=== PATIENT | female | born 1995 | race Caucasian/White ===

== ENCOUNTER 2018-03-10 16:28 | Emergency (ER) | payer OTHER ==
[~2018-03-10] VITALS: Ht 167.6 cm; Wt 67.1 kg
[2018-03-10 16:33] VITALS: BP 123/78
--- NOTE | 2018-03-10 16:40 | NUR ---
medicated per protocol with tylenol.
[2018-03-10] MEDS ORDERED: ACETAMINOPHEN 325 MG TAB ONE (16:43)
--- NOTE | 2018-03-10 16:59 | NUR ---
Patient ambulated to bed 3. RN evaluating patient at bedside.
--- NOTE | 2018-03-10 19:22 | NUR ---
DR. COTTO AT THE BEDSIDE EVALUATING PT
[2018-03-10 19:49] VITALS: BP 128/69
--- NOTE | 2018-03-10 19:50 | NUR ---
Patient discharged with v/s stable. Written and verbal after care instructions given and explained. Patient alert, oriented and verbalized understanding of instructions. Ambulatory with steady gait. All questions addressed prior to discharge. ID band removed. Patient advised to follow up with PMD. Rx of PREDNISONE, MOTRIN, CIPRO, DIFLUCAN given. Patient educated on indication of medication including possible reaction and side effects. Opportunity to ask questions provided and answered.
== END 2018-03-10 19:49 | disposition home or self-care (01) ==
LOC: MED 16:28
DX: N39.0 Urinary tract infection, site not specified (principal); J02.9 Acute pharyngitis, unspecified; K05.10 Chronic gingivitis, plaque induced
CPT/HCPCS: 81002; 81025; 99283